=== PATIENT | female | born 1955 | race Caucasian/White ===

== ENCOUNTER 2017-03-01 17:15 | Emergency (ER) | payer BC ==
[2017-03-01 17:34] VITALS: TEMP 98.7; BMI 37.8
[2017-03-01] MEDS ORDERED: ASPIRIN 81 MG CHEWABLE TABLETS PO ONE (17:38)
[2017-03-01] MEDS ORDERED: ASPIRIN 81 MG CHEWABLE TABLETS ONE (17:51)
--- NOTE | 2017-03-01 18:08 | PDOC ---
History of Present Illness - General Chief Complaint: Chest Pain Stated Complaint: CHEST PAIN WITH ARM MOVEMENT, DIZZY SPELL 4 TUESDA Time Seen by Provider: 03/01/17 17:26 History Source: Patient Exam Limitations: No Limitations - History of Present Illness Initial Comments: The patient is a 61 year old female with past medical history of hyperlipidemia , uterine CA, s/p hysterectomy, cholecystectomy, gastric banding who presents to the ED with complaints of left sided chest pain since yesterday. She reports the pain is intermittent, lasting only a few seconds each episode. The pain is also felt when moving her left arm and is aching in nature. It is not associated with SOB, palpitations, diaphoresis, n/v, worsening of sypmtoms on exertion, visual changes, dysarthria, or numbness/weakness/tingling. She also reports an episode of lightheadedness three days ago while at work. She states the episode lasted for three minutes and was not associated with any symptoms including headache, neck pain, back pain, cp, palpitations, sob, n/v, diahoresis , vision changes, diarrhea/dysuria./melena/bpr. Since then, she did not experience any similar episodes. The patient denies any recent illness, fever, chills, nausea, vomiting, diarrhea, or urinary symptoms. No recent exertional sypmtoms. Pt notes that prior to her onset of chets pain she was using a weed eunice in her yard for the time. The patient is a former smoker and reports hx of heart disease on dads side in the 70s. Past History - Past Medical History Allergies/Adverse Reactions: Allergies Allergy/AdvReac Type Severity Reaction Status Date / Time No Known Allergies Allergy Verified 03/01/17 17:24 Home Medications: Ambulatory Orders Dorzolamide HCl/Timolol Maleat [Cosopt Eye Drops] 10 ml OP BID 11/30/13 Pitavastatin Calcium [Livalo] 4 mg PO HS 03/01/17 Ranitidine [Zantac -] 150 mg PO BID 03/01/17 Anemia: No Asthma: No Cancer: Yes (H/O UTERINE) Cardiac Disorders: No CVA: No COPD: (SLEEP APNEA) CHF: No Dementia: No Diabetes: No GI Disorders: Yes (HIATAL HERNIA) Disorders: No HTN: No Hypercholesterolemia: Yes Liver Disease: No Seizures: No Thyroid Disease: No - Surgical History Abdominal Surgery: Yes (GASTRIC BAND) Appendectomy: No Cardiac Surgery: No Cholecystectomy: Yes Lung Surgery: No Neurologic Surgery: No Orthopedic Surgery: No - Psycho/Social/Smoking Cessation Hx Anxiety: No Suicidal Ideation: No Smoking History: Never smoked Have you smoked in the past 12 months: No If you are a former smoker, when did you quit?: 2003 Information on smoking cessation initiated: No Hx Alcohol Use: No Drug/Substance Use Hx: No Substance Use Type: None Hx Substance Use Treatment: No Cardiac Specific PMH - Complaint Specific PMHX Pacemaker: No Review of Systems - Review of Systems Able to Perform ROS?: Yes Comments:: CONSTITUTIONAL: No reported: Fever, Chills, Diaphoresis, Generalized Weakness, Malaise, Loss of Appetite HEENT: No reported: Rhinorrhea, Nasal Congestion, Throat Pain, Throat Swelling, Difficulty Swallowing, Mouth Swelling, Ear Pain, Eye Pain, Visual Changes CARDIOVASCULAR: Present: left sided chest pain, lightheaded episode No reported: Syncope, Palpitations, Irregular Heart Rate, Lightheadedness, Peripheral Edema RESPIRATORY: No reported: Cough, Shortness of Breath, SOB with Exertion, Orthopnea, Wheezing , Stridor, Hemoptysis GASTROINTESTINAL: No reported: Abdominal pain, Abdominal Distension, Nausea, Vomiting, Diarrhea, Constipation, Melena, Hematochezia GENITOURINARY: No reported: Dysuria, Frequency, Urgency, Hesitancy, Flank Pain, Genital Pain MUSCULOSKELETAL: No reported: Myalgia, Arthralgia, Joint Swelling, Back pain, Neck Pain SKIN: No reported: Rash, Itching, Pallor HEMEATOLOGIC/IMMUNOLOGIC: No reported: Easy Bleeding, Easy Bruising, Lymphadenopathy, Frequent infections ENDOCRINE: No reported: Unexplained Weight Gain, Unexplained Weight Loss, Heat Intolerance , Cold Intolerance NEUROLOGIC: No reported: Headache, Focal Weakness, Paresthesias, Vertigo, Unsteady Gait, Seizure, Mental Status Changes, Incontinence PSYCHIATRIC: No reported: Anxiety, Depression *Physical Exam - Vital Signs Last Vital Signs Temp Pulse Resp BP Pulse Ox 98.7 F 66 16 152/80 97 03/01/17 17:22 03/01/17 20:35 03/01/17 20:35 03/01/17 18:55 03/01/17 20:35 - Physical Exam Comments: GENERAL: The patient is awake, alert, and fully oriented, Nontoxic - in no acute distress. HEAD: Normocephalic, atraumatic. EYES: extraocular movements intact, sclera anicteric, conjunctiva clear. ENT: Normal voice, Moist mucous membranes. NECK: Normal range of motion, supple LUNGS: Breath sounds equal, clear to auscultation bilaterally. No wheezes, no rhonchi, no rales. HEART: Reproducible chest pain to left anterior chest. Regular rate and rhythm, without murmur, rub or gallop. ABDOMEN: Soft, nontender, normoactive bowel sounds. No guarding, no rebound.No CVA tenderness EXTREMITIES: Normal range of motion, no edema. No clubbing or cyanosis. No cords , erythema, or tenderness. NEUROLOGICAL: No facial assymetry, Normal speech, moving all 4 extremities spontaneously and symmetrically PSYCH: Normal mood, normal affect. SKIN: Warm, Dry, normal turgor, Heart Score/ECG Review - History History: Slightly suspicious - Electrocardiogram EKG: Non specific repolarization disturbance - Age Age: 45-65 - Risk Factors Risk Factors Heart Score: Yes Hx Hypercholesterolemia Based on the list above the patient has:: 1-2 risk factors - Troponin Troponin: </= normal limit - Score Heart Score - Total: 3 - ECG Impressions Comment:: 03/01/17 18:51 Twelve-lead EKG was performed and reviewed by me. There is normal sinus rhythm with a normal rate. Rate of 70 The axis is normal. The intervals are normal. There is normal R wave progression T wave flattening in aVL ED Treatment Course - LABORATORY CBC & Chemistry Diagram: 03/01/17 18:00 03/01/17 18:00 - ADDITIONAL ORDERS Additional order review: 03/01/17 18:00 RBC 5.24 H MCV 78.9 L MCHC 33.0 RDW 13.7 MPV 9.0 Neutrophils % 53.8 Lymphocytes % 33.0 Monocytes % 9.6 Eosinophils % 3.0 Basophils % 0.6 - RADIOLOGY Radiology Studies Ordered: Category Date Time Status CHEST PA & LAT [RAD] Stat Radiology 03/01/17 17:38 Completed - Medications Given in the ED: ED Medications Discontinued Medications Generic Name Dose Route Start Last Admin Trade Name Freq PRN Reason Stop Dose Admin Acetaminophen 650 mg 03/01/17 18:50 03/01/17 19:06 Tylenol - PO 03/01/17 18:51 650 mg ONCE ONE Administration Aspirin 162 mg 03/01/17 17:38 03/01/17 17:53 Asa - PO 03/01/17 17:39 162 mg ONCE ONE Administration Medical Decision Making - Medical Decision Making 03/01/17 18:49 61y F hx of hl, borderline dm, presents with intermittent episodic L sided chest pain that is worse with movements of her L arm w/o associated exertioanl sypmtoms, it is also reproducible in nature. suspect muscular pain, but also consider acs will obtain trop x2 , cxr, ekg pt given asa case dw dr. Tineo agree with management and trops x2, if feeling well asymptomatic will dc with supportive mangaement and will have dr. Tineo refer for outpatient risk strateification. will sign pt out to dr. Alcantar to fu with 2nd troponin and disposition the patient *DC/Admit/Observation/Transfer Diagnosis at time of Disposition: Chest wall muscle strain Qualifiers: Encounter type: initial encounter Qualified Code(s): S29.011A - Strain of muscle and tendon of front wall of thorax, initial encounter - Discharge Dispostion Disposition: HOME Condition at time of disposition: Stable - Referrals Referrals: Jules Bennett MD [Staff Physician] - 3 days - Patient Instructions Printed Discharge Instructions: DI for Atypical Chest Pain Additional Instructions: avoid strenuous upper body activity tylenol as needed 3 times a day can use topical patch(such as "Mitchell-german") to area daily followup with Dr Tineo in office Sunday 03/04, afternoon return to ER if you have worsening pain
[2017-03-01 18:23] LABS: BASOPHIL 0.6 % (0-2.0)
[2017-03-01 18:29] LABS: INR 1.1 (0.82-1.09); MEAN CELL VOLUME 78.9 fl (80-96); NEUTROPHILS 53.8 % (42.8-82.8); PLATELET COUNT 254 K/MM3 (134-434); PROTHROMBIN TIME (PATIENT) 12.3 SEC (10.2-13.0); RDW 13.7 % (11.6-15.6); WHITE BLOOD COUNT 8.3 K/mm3 (4.0-10.8)
[2017-03-01 18:34] LABS: ALBUMIN 4.4 g/dl (3.5-5.0); ALK PHOS 75 U/L (32-92); ANION GAP 10 (8-16); CALCIUM 9.4 mg/dl (8.4-10.2); CO2 28 mmol/L (22-28); CPK(DFH) 264 IU/L (26-140); CREATININE 0.8 mg/dl (0.6-1.3); GLUCOSE,RANDOM 91 mg/dl (74-106); SGOT/AST 25 U/L (10-42); SGPT/ALT 25 U/L (10-40); TOT PROT 7.8 g/dl (6.4-8.3)
[2017-03-01] MEDS ORDERED: ACETAMINOPHEN 325 MG TABLET (FP) PO ONE (18:50)
[2017-03-01 18:54] LABS: BILIRUBIN,TOTAL < 0.3 mg/dl (0.2-1.0); TROPONIN I (DFP) < 0.03 ng/ml (0.03-0.50)
[2017-03-01 18:55] LABS: CK MB 6.5 ng/ml (0.3-4.0)
[2017-03-01 18:56] VITALS: BP 152/80
[2017-03-01] MEDS ORDERED: ACETAMINOPHEN 325 MG TABLET (FP) ONE (19:04)
--- NOTE | 2017-03-01 19:24 | PDOC ---
*Physical Exam - Vital Signs Last Vital Signs Temp Pulse Resp BP Pulse Ox 98.7 F 64 17 152/80 98 03/01/17 17:22 03/01/17 18:55 03/01/17 18:55 03/01/17 18:55 03/01/17 18:55 ED Treatment Course - LABORATORY CBC & Chemistry Diagram: 03/01/17 18:00 03/01/17 18:00 - ADDITIONAL ORDERS Additional order review: Laboratory Results 03/01/17 03/01/17 03/01/17 18:00 18:00 18:00 INR 1.10 Sodium 143 Potassium 3.7 Chloride 105 Carbon Dioxide 28 D Anion Gap 10 BUN 13 Creatinine 0.8 Creat Clearance w eGFR > 60 Random Glucose 91 Calcium 9.4 Total Bilirubin < 0.3 D AST 25 ALT 25 Alkaline Phosphatase 75 Creatine Kinase 264 H CK-MB (CK-2) 6.5 H Troponin I < 0.03 L Total Protein 7.8 Albumin 4.4 03/01/17 18:00 RBC 5.24 H MCV 78.9 L MCHC 33.0 RDW 13.7 MPV 9.0 Neutrophils % 53.8 Lymphocytes % 33.0 Monocytes % 9.6 Eosinophils % 3.0 Basophils % 0.6 - Medications Given in the ED: ED Medications Discontinued Medications Generic Name Dose Route Start Last Admin Trade Name Sudeepq PRN Reason Stop Dose Admin Acetaminophen 650 mg 03/01/17 18:50 03/01/17 19:06 Tylenol - PO 03/01/17 18:51 650 mg ONCE ONE Administration Aspirin 162 mg 03/01/17 17:38 03/01/17 17:53 Asa - PO 03/01/17 17:39 162 mg ONCE ONE Administration Progress Note - Progress Note Progress Note: Care of this patient received from Dr. Morton. Second set of cardiac enzymes are not elevated. Dr. Tineo contacted and results discussed with him. The patient will follow-up with him on March 04 as scheduled. Meanwhile, the patient should continue Tylenol 3 times a day as needed for her pain and use topical analgesic patch such as BenGay. She should return to the emergency room if pain worsens or she experiences shortness of breath/nausea. *DC/Admit/Observation/Transfer Diagnosis at time of Disposition: Chest wall muscle strain Qualifiers: Encounter type: initial encounter Qualified Code(s): S29.011A - Strain of muscle and tendon of front wall of thorax, initial encounter - Discharge Dispostion Disposition: HOME Condition at time of disposition: Stable - Referrals Referrals: Jules Bennett MD [Staff Physician] - 3 days - Patient Instructions Printed Discharge Instructions: DI for Atypical Chest Pain Additional Instructions: avoid strenuous upper body activity tylenol as needed 3 times a day can use topical patch(such as "Mitchell-german") to area daily followup with Dr Tineo in office Sunday 03/04, afternoon return to ER if you have worsening pain
[2017-03-01 20:36] VITALS: PULSE 66
[2017-03-01 22:19] LABS: CPK(DFH) 224 IU/L (26-140)
[2017-03-01 22:42] LABS: CK MB 5.6 ng/ml (0.3-4.0); TROPONIN I (DFP) < 0.03 ng/ml (0.03-0.50)
--- NOTE | 2017-03-05 09:05 | EKG ---
Test Reason : Blood Pressure : / mmHG Vent. Rate : 070 BPM Atrial Rate : 070 BPM P-R Int : 196 ms QRS Dur : 088 ms QT Int : 390 ms P-R-T Axes : 050 006 057 degrees QTc Int : 421 ms NORMAL SINUS RHYTHM NONSPECIFIC ST ABNORMALITY WHEN COMPARED WITH ECG OF 08-OCT-2014 14:23, NO SIGNIFICANT CHANGE WAS FOUND Confirmed by MD PARHAM MARJORY ([id number]) on 03/05/2017 9:05:30 AM Referred By: MD MEADE Confirmed By:ROYAL PARHAM MD
== END 2017-03-01 22:54 | disposition home or self-care (01) ==
LOC: FER 17:15
DX: S29.011A Strain of muscle and tendon of front wall of thorax, initial encounter (principal); X58.XXXA Exposure to other specified factors, initial encounter; Y93.9 Activity, unspecified; Y92.9 Unspecified place or not applicable; Z85.42 Personal history of malignant neoplasm of other parts of uterus; Z98.84 Bariatric surgery status; E78.5 Hyperlipidemia, unspecified; G47.30 Sleep apnea, unspecified
CPT/HCPCS: 36415; 71020-TC; 80053; 82550; 82553; 84484; 85025; 85610; 93005; 99284-25

== ENCOUNTER 2018-05-16 10:12 | Day surgery (SDC) | payer BC ==
[2018-05-16] MEDS ORDERED: LIDOCAINE HCL/PF 2% SDV 5ML VIAL ONE (10:41)
[2018-05-16] MEDS ORDERED: PROPOFOL 20 ML ONE ×2 (10:41)
[2018-05-16 10:54] VITALS: BMI 39.9
[2018-05-16 12:00] VITALS: TEMP 98.1
[2018-05-16 13:53] VITALS: BP 161/75; PULSE 57
== END 2018-05-16 13:30 | disposition home or self-care (01) ==
LOC: JASU-ENDO 10:12
PROVIDERS: ATTEND Internal Medicine Gastroenterology
PROC: 0DBM8ZX Excision of Descending Colon, Via Natural or Artificial Opening Endoscopic, Diagnostic (ICD-10-PCS; 2018-05-16)
PROC: 0DBN8ZX Excision of Sigmoid Colon, Via Natural or Artificial Opening Endoscopic, Diagnostic (ICD-10-PCS; 2018-05-16)
PROC: 0DBP8ZX Excision of Rectum, Via Natural or Artificial Opening Endoscopic, Diagnostic (ICD-10-PCS; 2018-05-16)
PROC: 0DB98ZX Excision of Duodenum, Via Natural or Artificial Opening Endoscopic, Diagnostic (ICD-10-PCS; 2018-05-16)
PROC: 0DB68ZX Excision of Stomach, Via Natural or Artificial Opening Endoscopic, Diagnostic (ICD-10-PCS; 2018-05-16)
PROC: 0DB38ZX Excision of Lower Esophagus, Via Natural or Artificial Opening Endoscopic, Diagnostic (ICD-10-PCS; 2018-05-16)
PROC: 0DBL8ZX Excision of Transverse Colon, Via Natural or Artificial Opening Endoscopic, Diagnostic (ICD-10-PCS; principal; 2018-05-16 11:00)
DX: Z12.11 Encounter for screening for malignant neoplasm of colon (principal); Z86.010 Personal history of colon polyps; D12.4 Benign neoplasm of descending colon; D12.5 Benign neoplasm of sigmoid colon; D12.3 Benign neoplasm of transverse colon; K62.1 Rectal polyp; K64.8 Other hemorrhoids; K57.30 Diverticulosis of large intestine without perforation or abscess without bleeding; K21.9 Gastro-esophageal reflux disease without esophagitis; K29.80 Duodenitis without bleeding
CPT/HCPCS: 88305-TC; 88342-TC

== ENCOUNTER 2018-09-12 08:12 | Day surgery (SDC) | payer BC ==
[2018-09-11 16:04] VITALS: BMI 42.0
[2018-09-12] MEDS ORDERED: PROMETHAZINE HCL 25 MG/1 ML VIAL IVPB PRN (10:12)
[2018-09-12] MEDS ORDERED: IBUPROFEN 800 MG/8 ML IJ IVPB PRN (10:12)
[2018-09-12] MEDS ORDERED: oxyCODONE HCL 5 MG TABLET PO PRN ×2 (10:12→12:02)
[2018-09-12] MEDS ORDERED: ONDANSETRON 4 MG/2 ML VIAL IVPUSH PRN ×2 (10:12→12:02)
[2018-09-12] MEDS ORDERED: ACETAMINOPHEN 1000 MG/100 ML VIAL (NON FORMULARY) IVPB PRN (10:13)
[2018-09-12] MEDS ORDERED: LACTATED RINGERS SOLUTION 1,000 ML IV SCH (10:15)
[2018-09-12] MEDS ORDERED: ceFAZolin SODIUM 1 GM VIAL ONE (10:18)
[2018-09-12] MEDS ORDERED: LIDOCAINE HCL/PF 2% SDV 5ML VIAL ONE (10:18)
[2018-09-12] MEDS ORDERED: ROCURONIUM BROMIDE 50 MG/5 ML VIAL ONE (10:19)
[2018-09-12] MEDS ORDERED: fentaNYL CITRATE 250 MCG/5 ML VIAL ONE (10:19)
[2018-09-12] MEDS ORDERED: MIDAZOLAM HCL 2 MG/2 ML SINGLE DOSE VIAL ONE (10:19)
[2018-09-12] MEDS ORDERED: PROPOFOL 20 ML ONE ×2 (10:19)
[2018-09-12] MEDS ORDERED: ceFAZolin SODIUM 1 GM VIAL IVPB ONE (10:45)
[2018-09-12] MEDS ORDERED: DEXAMETHASONE SOD PHOSPHATE 4 MG/1 ML VIAL ONE (10:55)
[2018-09-12] MEDS ORDERED: GLYCOPYRROLATE 0.2 MG/1 ML VIAL ONE (11:13)
[2018-09-12] MEDS ORDERED: NEOSTIGMINE METHYLSULFATE 0.5 MG/ML - 10 ML MDV ONE (11:13)
[2018-09-12] MEDS ORDERED: BUPIVACAINE HCL/PF 0.5% (5MG/ML) 10 ML VIAL ONE (11:47)
[2018-09-12] MEDS ORDERED: BUPIVACAINE HCL/PF (5 MG/ML) 30 ML VIAL IJ ONE (11:48)
[2018-09-12] MEDS ORDERED: PROMETHAZINE HCL 50 MG/1 ML AMP IM PRN (12:02)
[2018-09-12] MEDS ORDERED: ENOXAPARIN NA (PORCINE) 40 MG/0.4 ML DISP.SYRIN SQ ONE (12:02)
--- NOTE | 2018-09-12 12:13 | OP ---
Operative Note - Note: Operative Date: 09/12/18 Pre-Operative Diagnosis: Epigastric Pain. Vomiting. GE Reflux Disease. Mechanical Complication of Implantable Device secondary to Gastric Band Operation: Removal of Gastric Band plus subcutaneous Port. Laparoscopic Lysis of Adhesions. Excision of Fibrous Capsule around Stomach. Diagnostic Laparoscopy Findings: Band removed from around stomach Fibrous capsule around stomach carefully dissected free Post-Operative Diagnosis: Same as Pre-op (Abdominal Adhesions; Fibrous capsule around stomach) Surgeon: Kevin Pretty Assistant To The Ceo: Rich Chowdary Anesthesia: General Specimens Removed: Gastric Band plus sub-Q Port compnent. Fibrous Capsule around Stomach Estimated Blood Loss (mls): 20 Operative Report Dictated: Yes
[2018-09-12] MEDS ORDERED: SODIUM CHLORIDE 1,000 ML IV SCH (12:15)
--- NOTE | 2018-09-12 12:18 | SURG ---
Surgery Coroner Forensic Technician Note Coroner Forensic Technician: Rich Chowdary PA-C Date of Service: 09/12/18 Diagnosis: Epigastric Pain. Vomiting. GE Reflux Disease. Mechanical Complication of Implantable Device secondary to Gastric Band Procedure: Removal of Gastric Band plus subcutaneous Port. Laparoscopic Lysis of Adhesions. Excision of Fibrous Capsule around Stomach. Diagnostic Laparoscopy I was present for the entirety of the operative procedure. For further detail, please refer to operative report. Visit type - Case Type Case Type: Scheduled - New patient This patient is new to me today: Yes Date on this admission: 09/12/18
--- NOTE | 2018-09-12 13:24 | OP ---
DATE OF OPERATION: 09/12/2018 PREOPERATIVE DIAGNOSES: 1. Epigastric pain. 2. Vomiting. 3. Gastroesophageal reflux disease. 4. Mechanical complication of implantable device secondary to gastric band. POSTOPERATIVE DIAGNOSES: 1. Epigastric abdominal pain. 2. Vomiting. 3. Gastroesophageal reflux disease. 4. Mechanical complication of implantable device secondary to gastric band. 5. Abdominal adhesions. 6. Fibrous capsule around the stomach. PROCEDURE PERFORMED: 1. Removal of gastric band plus subcutaneous port component. 2. Laparoscopic lysis of adhesions. 3. Excision of fibrous capsule around the stomach. 4. Diagnostic laparoscopy. SURGEON: Kevin Pretty MD MARINE STEAM FITTER: TAVO Bethea ANESTHESIA: General. OPERATIVE PROCEDURE: The patient was brought into the operating room, placed on the OR table in a supine position. All precautions were taken initially including padding for the back and the feet, and Venodyne boots were placed on both lower extremities. At that point, the abdomen was prepped and draped in usual manner. A Veress needle was placed in the left upper quadrant and pneumoperitoneum established. A number 5 bladeless trocar was placed in the left upper quadrant under direct guidance with a laparoscopic camera. Through that trocar then a laparoscopic camera was placed. Under direct vision, a number 15 bladeless trocar was placed in the right upper quadrant just beside the falciform ligament. Using that as the camera guide, a number 5 bladeless trocar was then placed below the left costal margin. The camera was then placed through that trocar, and there were adhesions to the right upper quadrant that needed to be lysed from the patient's previous surgery. These were done with a combination of sharp dissection with the scissors and also with electrocautery. Once enough adhesion between the omentum and anterior abdominal wall was cleared, a number 5 bladeless trocar was then placed more laterally in the right upper quadrant. At this point, a Solomon liver retractor was placed in the epigastrium to retract left lobe of the liver. The patient was then placed in a 20-degree reverse Trendelenburg position by Anesthesia. Attention was now directed to the band which was located around the stomach. The band tubing was seen, and that was pulled to the patient's left side by the assistant county attorney surgeon as the operating surgeon used electrocautery to dissect the fibrous capsule off of the band on the lesser curvature side. This continued laterally until the band was able to be moved on the lesser curvature side. At this juncture, the operating surgeon pulled the band tubing toward the patient's right side. The assistant county attorney surgeon retracted the stomach inferiorly on the greater curvature. The electrocautery was then used to score and dissect the fibrous capsule off the band on the greater curvature side until the entire band was fully visible on the greater curvature side of the stomach. At this point, band tubing was cut at its takeoff to the subcutaneous port, and the band was then cut and opened up. The band was then removed from around the stomach in 1 piece, and the band was then sent off the field with the band tubing and the band through the number 15 trocar site, sent off the field as specimen to Pathology. Attention was now directed to the fibrous capsule around the stomach. The fibrous capsule superiorly was noted to be thick, and this was dissected off the stomach wall, and a piece of it was cut and sent off the field as specimen to Pathology for study. The rest of the stomach on the anterior surface now was in full view and was now cleared of the fibrous capsule. At this juncture, under direct vision, all trocars were removed, and pneumoperitoneum is released. The right upper quadrant number 15 trocar site was extended laterally, and dissection continued with electrocautery down to the fibrous capsule on the port. The fibrous capsule was excised with electrocautery off the port, and the port was then removed from the right anterior rectus muscle and sent off the field as a specimen to Pathology with the rest of the band and tubing. At this point, all trocar sites received 0.25% Marcaine. The number 15 trocar site was closed with 0 Vicryl on the subcutaneous tissue then all trocar sites were closed with 4-0 Biosyn in subcuticular fashion. Dressings were applied. The patient awoke from anesthesia and transferred out of the operating room to the recovery room in stable condition. EXPECTED BLOOD LOSS: 00 mL. DISPOSITION: The patient was transferred to the recovery room in stable condition. Eleanor [id number]
[2018-09-12 15:41] VITALS: BP 132/74; PULSE 71; TEMP 98.1
[2018-09-12] MEDS ORDERED: FAMOTIDINE 20 MG/50 ML IVPB 20 MG/50 ML MG IVPB SCH (22:00)
--- NOTE | 2018-09-16 18:49 | PATH ---
Surgical Pathology Report Patient Name: [facility]. Rec. #: [id number] /Age/Gender: 1955 (Age: 62) / F Account: [id number] Location: [facility] SURGICAL Taken: 09/12/2018 Received: 09/12/2018 Reported: 09/16/2018 Physicians: Kevin Pretty M.D. Specimen(s) Received A: REMOVED GASTRIC BAND AND PORT B: FIBROUS CAPSULE AROUND STOMACH Clinical History Complications of gastric band procedure Final Diagnosis A. GASTRIC BAND AND PORT, REMOVAL: GASTRIC BAND AND PORT. MACROSCOPIC DIAGNOSIS. B. STOMACH, FIBROUS CAPSULE, EXCISION: CONSISTENT WITH FIBROUS CAPSULE. Electronically Signed Coreen Tomas M.D. Gross Description A. Received fresh labeled "removed gastric band and port," is a 4 cm in diameter white, circular device, consistent with a gastric band. The specimen displays an attached 39 cm in length portion of tubing. Also received within the same container is a 4.6 cm in greatest dimension lund device, consistent with a port. The port displays attached fibrous capsule. There are two additional portions of tubing received, measuring 2.0 and 13.0 cm in length. No sections are submitted, gross only. B. Received in formalin labeled "fibrous capsule around stomach," is a 2.0 x 0.9 x 0.1 cm lund portion of fibrous capsule. Can Labeler sections are submitted in one cassette. /09/15/2018
== END 2018-09-12 15:35 | disposition home or self-care (01) ==
LOC: JASU-SURG 08:12
PROVIDERS: ATTEND Surgery
PROC: 0DP Gastrointestinal System, Removal (ICD-10-PCS; principal; 2018-09-12 10:00)
DX: T85.598A Other mechanical complication of other gastrointestinal prosthetic devices, implants and grafts, initial encounter (principal); R10.13 Epigastric pain; R11.10 Vomiting, unspecified; K21.9 Gastro-esophageal reflux disease without esophagitis; K66.0 Peritoneal adhesions (postprocedural) (postinfection)
CPT/HCPCS: 74241-TC-FY; 86850; 86900; 86901; 88300-TC; 88304-TC; 94760; J0131

== ENCOUNTER 2019-06-08 08:21 | Inpatient (IN) | payer BC | END 2019-06-11 11:45 | disposition home or self-care (01) | LOC: FM/S 08:21 ==

== ENCOUNTER 2022-01-19 05:41 | Day surgery (SDC) | payer BC ==
[2022-01-17 09:40] VITALS: BMI 46.3
[2022-01-19 10:59] VITALS: TEMP 98.2
[2022-01-19 11:04] VITALS: BP 95/33; PULSE 60
== END 2022-01-19 11:13 | disposition home or self-care (01) ==
LOC: JASU-ENDO 05:41
PROVIDERS: ATTEND Internal Medicine Gastroenterology
PROC: 0DBP8ZX Excision of Rectum, Via Natural or Artificial Opening Endoscopic, Diagnostic (ICD-10-PCS; principal; 2022-01-19 10:00)
DX: D12.8 Benign neoplasm of rectum (principal); K57.30 Diverticulosis of large intestine without perforation or abscess without bleeding; K64.8 Other hemorrhoids; Z12.11 Encounter for screening for malignant neoplasm of colon
CPT/HCPCS: 88305-TC

== ENCOUNTER 2023-05-31 18:34 | Inpatient (IN) | payer OTHER, BC ==
[2023-05-31 19:43] LABS: BASO % 0.9 % (0-2.0); EOS % 3.4 % (0-4.5); HEMATOCRIT 39.6 % (32.4-45.2); LYMPH % 31.4 % (8-40); MCH 25.1 pg (25.7-33.7); MCHC 32.9 g/dl (32.0-36.0); MEAN CELL VOLUME 76.2 fl (80-96); MEAN PLT VOLUME 8.5 fl (7.5-11.1); MONO % 9.5 % (3.8-10.2); NEUT % 54.8 % (42.8-82.8); PLATELET COUNT 290 10^3/uL (134-434); RBC 5.19 M/mm3 (3.60-5.2); RDW 15.9 % (11.6-15.6); WHITE BLOOD COUNT 9.2 K/mm3 (4.0-10.0)
[2023-05-31] MEDS ORDERED: ACETAMINOPHEN 1000 MG/100 ML BAG IVPB ONE (20:05)
[2023-05-31 20:09] LABS: POTASSIUM 4.3 mmol/L (3.5-5.1)
[2023-05-31 20:11] LABS: CALCIUM 9.6 mg/dL (8.5-10.1)
[2023-05-31 20:12] LABS: BLOOD UREA NITROGEN 21.2 mg/dL (7-18)
[2023-05-31] MEDS ORDERED: ACETAMINOPHEN INJECTION 100 ML IVPB ONE (20:12)
[2023-05-31 20:15] LABS: CREATININE 1.2 mg/dL (0.55-1.3)
[2023-05-31 20:16] LABS: BILIRUBIN,TOTAL 0.2 mg/dL (0.2-1); TOT PROT 7.5 g/dl (6.4-8.2)
[2023-05-31] MEDS ORDERED: SODIUM CHLORIDE 1,000 ML IV STA (21:19)
[2023-06-01] MEDS ORDERED: LACTATED RINGERS SOLUTION 1,000 ML/1,000 ML INFUS.BAG IV SCH (06:00)
[2023-06-01 07:57] LABS: BASO % 0.9 % (0-2.0); EOS % 2.8 % (0-4.5); HEMOGLOBIN 12.4 GM/dL (10.7-15.3); LYMPH % 27.1 % (8-40); MCH 24.9 pg (25.7-33.7); MCHC 31.9 g/dl (32.0-36.0); MEAN CELL VOLUME 78.3 fl (80-96); MEAN PLT VOLUME 8.9 fl (7.5-11.1); MONO % 10.2 % (3.8-10.2); PLATELET COUNT 269 10^3/uL (134-434); RBC 4.98 M/mm3 (3.60-5.2); RDW 15.7 % (11.6-15.6); WHITE BLOOD COUNT 7.4 K/mm3 (4.0-10.0)
[2023-06-01 08:13] LABS: POTASSIUM 4.2 mmol/L (3.5-5.1)
[2023-06-01 08:15] LABS: CALCIUM 9.1 mg/dL (8.5-10.1)
[2023-06-01 08:16] LABS: ALBUMIN 3.8 g/dl (3.4-5.0); BLOOD UREA NITROGEN 18.4 mg/dL (7-18)
[2023-06-01 08:18] LABS: CREATININE 0.9 mg/dL (0.55-1.3)
[2023-06-01 08:20] LABS: BILIRUBIN,TOTAL 0.3 mg/dL (0.2-1); TOT PROT 7.2 g/dl (6.4-8.2)
[2023-06-01] MEDS ORDERED: ASPIRIN 81 MG CHEWABLE TABLETS ONE ×2 (10:52→11:00)
[2023-06-01] MEDS ORDERED: ENOXAPARIN NA (PORCINE) 40 MG/0.4 ML DISP.SYRIN SQ ONE (10:52)
[2023-06-01] MEDS: ENOXAPARIN NA (PORCINE) 40 MG/0.4 ML DISP.SYRIN SQ SCH ×2 (11:01→22:24)
[2023-06-01] MEDS: ASPIRIN 81 MG CHEWABLE TABLETS PO SCH (11:01)
[2023-06-01 17:05] VITALS: BMI 45.6
[2023-06-01] MEDS: FENOFIBRIC ACID 135 MG CAP PO SCH (22:25)
[2023-06-01] MEDS: LATANOPROST 0.005% OPHTH SOLN 2.5ML BOTTLE OU SCH (22:26)
[2023-06-02 09:21] LABS: POTASSIUM 4.2 mmol/L (3.5-5.1)
[2023-06-02 09:30] LABS: CREATININE 1.1 mg/dL (0.55-1.3); TOT PROT 7.1 g/dl (6.4-8.2)
[2023-06-02 09:32] LABS: BLOOD UREA NITROGEN 19.4 mg/dL (7-18); CALCIUM 9.5 mg/dL (8.5-10.1)
[2023-06-02 09:34] LABS: ALBUMIN 3.7 g/dl (3.4-5.0); MAGNESIUM 2.1 mg/dL (1.8-2.4)
[2023-06-02 09:35] LABS: PHOSPHOROUS 3.9 mg/dL (2.5-4.9)
[2023-06-02 09:36] LABS: BILIRUBIN,TOTAL 0.3 mg/dL (0.2-1)
[2023-06-02] MEDS: ENOXAPARIN NA (PORCINE) 40 MG/0.4 ML DISP.SYRIN SQ SCH ×2 (09:38→21:30)
[2023-06-02] MEDS: ASPIRIN 81 MG CHEWABLE TABLETS PO SCH (09:38)
[2023-06-02 09:43] LABS: HEMATOCRIT 43.2 % (32.4-45.2); HEMOGLOBIN 13.9 GM/dL (10.7-15.3); MCH 24.7 pg (25.7-33.7); MCHC 32.3 g/dl (32.0-36.0); MEAN CELL VOLUME 76.6 fl (80-96); MEAN PLT VOLUME 9.1 fl (7.5-11.1); PLATELET COUNT 232 10^3/uL (134-434); RBC 5.64 M/mm3 (3.60-5.2); WHITE BLOOD COUNT 7.2 K/mm3 (4.0-10.0)
[2023-06-02] MEDS: FAMOTIDINE 20 MG TABLET PO SCH ×2 (13:15→21:30)
[2023-06-02] MEDS: FENOFIBRIC ACID 135 MG CAP PO SCH (21:30)
[2023-06-02] MEDS: LATANOPROST 0.005% OPHTH SOLN 2.5ML BOTTLE OU SCH (21:48)
[2023-06-02] MEDS ORDERED: ACETAMINOPHEN 1000 MG/100 ML BAG IVPB ONE (22:01)
[2023-06-02] MEDS: hydrALAZINE HCL 20 MG/ML VIAL IVPUSH ONE ×2 (22:52→22:55)
[2023-06-03] MEDS ORDERED: amLODIPine BESYLATE 5 MG TABLET (FP) PO SCH (08:00)
[2023-06-03] MEDS ORDERED: REGADENOSON 0.4 MG/5 ML PRE-FILLED SYRINGE IVPUSH ONE ×2 (09:54→10:15)
[2023-06-03] MEDS: FAMOTIDINE 20 MG TABLET PO SCH (12:10)
[2023-06-03] MEDS: ENOXAPARIN NA (PORCINE) 40 MG/0.4 ML DISP.SYRIN SQ SCH (12:10)
[2023-06-03] MEDS: ASPIRIN 81 MG CHEWABLE TABLETS PO SCH (12:10)
[2023-06-03] MEDS ORDERED: LOSARTAN POTASSIUM 50 MG TABLET PO SCH (15:00)
[2023-06-03 15:46] VITALS: BP 173/75; PULSE 76; RESP 19; TEMP 98.5
[2023-06-03] MEDS ORDERED: ATORVASTATIN CA 40 MG TABLET (FP) PO SCH (22:00)
== END 2023-06-03 17:57 | disposition home or self-care (01) | DRG 313 ==
LOC: JER 18:34 → JERBED 06-01 01:39 → OBSVTOIN 06-01 04:59 → J4W 06-01 15:59
PROVIDERS: ADMIT Internal Medicine; ATTEND Internal Medicine
DX: R07.89 Other chest pain (principal); Z68.42 Body mass index [BMI] 45.0-49.9, adult; K21.9 Gastro-esophageal reflux disease without esophagitis; E78.5 Hyperlipidemia, unspecified; G47.33 Obstructive sleep apnea (adult) (pediatric); E66.01 Morbid (severe) obesity due to excess calories; I25.10 Atherosclerotic heart disease of native coronary artery without angina pectoris; R73.03 Prediabetes; R11.0 Nausea; K76.0 Fatty (change of) liver, not elsewhere classified
CPT/HCPCS: 0241U-QW; 36415; 71046-TC-FY; 71275-TC; 74174-TC; 78452-TC; 80053; 80061; 83036; 83735; 84100; 84443; 84484; 85025; 85027; 93005; 93010; 93017; 93306-TC; 99285-25; A9502; G0378; J2785; Q9967

== ENCOUNTER 2025-04-08 13:10 | Observation (INO) | payer OTHER, BC ==
[2025-04-08 13:15] VITALS: BMI 43.1
[2025-04-08 14:16] LABS: ABSOLUTE IMMATURE GRANULOCYTES 0.03 x10^3/uL (0.0-0.031); BASOPHILS # 0.07 x10^3/uL (0.01-0.08); EOSINOPHIL % 1.1 % (0.7-5.8); EOSINOPHILS # 0.11 x10^3/uL (0.04-0.36); HEMATOCRIT 40.4 % (34.1-44.9); HEMOGLOBIN 12.4 g/dL (11.2-15.7); MCHC 30.7 g/dl (32.2-35.5); MEAN CELL VOLUME 79.4 fl (79.4-94.8); MEAN PLT VOLUME 10.6 fl (9.4-12.3); MONOCYTE # 0.85 x10^3/uL (0.24-0.86); MONOCYTE % 8.2 % (4.7-12.5); PLATELET COUNT 308 x10^3/uL (182-369)
[2025-04-08 14:26] LABS: INR 1.16 (0.83-1.09); PROTHROMBIN TIME (PATIENT) 12.6 SEC (9.7-13.0)
[2025-04-08 14:29] LABS: ACTIVATED PTT 36.1 SECONDS (25.2-36.5)
[2025-04-08 14:41] LABS: POTASSIUM 3.9 mmol/L (3.5-5.1)
[2025-04-08 14:44] LABS: BLOOD UREA NITROGEN 23.4 mg/dL (7-18); CALCIUM 10.3 mg/dL (8.5-10.1); MAGNESIUM 1.9 mg/dL (1.8-2.4)
[2025-04-08 14:48] LABS: CREATININE 1.2 mg/dL (0.55-1.3)
[2025-04-08 14:49] LABS: BILIRUBIN,TOTAL 0.2 mg/dL (0.2-1); TOT PROT 7.6 g/dl (6.4-8.2)
[2025-04-08 14:52] LABS: N-TERMINAL BNP 95.2 pg/ml (5-125)
[2025-04-08] MEDS ORDERED: ATORVASTATIN CA 40 MG TABLET (FP) ONE (20:19)
[2025-04-08] MEDS: ATORVASTATIN CA 40 MG TABLET (FP) PO SCH (21:17)
[2025-04-08] MEDS: FENOFIBRIC ACID 135 MG CAP PO SCH (21:18)
[2025-04-08] MEDS: LATANOPROST 0.005% OPHTH SOLN 2.5ML BOTTLE OU SCH (21:23)
[2025-04-08] MEDS: DORZOLAMIDE HCL/TIMOLOL OPHTHALMIC SOLUTION 10 ML BOTTLE OU SCH (21:24)
[2025-04-09 06:01] VITALS: BP 107/57; PULSE 72; RESP 20; TEMP 97.9
[2025-04-09 09:24] LABS: ABSOLUTE IMMATURE GRANULOCYTES 0.02 x10^3/uL (0.0-0.031); BASOPHILS # 0.06 x10^3/uL (0.01-0.08); EOSINOPHIL % 0.9 % (0.7-5.8); EOSINOPHILS # 0.09 x10^3/uL (0.04-0.36); HEMATOCRIT 39.7 % (34.1-44.9); HEMOGLOBIN 12.1 g/dL (11.2-15.7); MCHC 30.5 g/dl (32.2-35.5); MEAN CELL VOLUME 79.1 fl (79.4-94.8); MEAN PLT VOLUME 10.5 fl (9.4-12.3); MONOCYTE # 0.73 x10^3/uL (0.24-0.86); MONOCYTE % 7.4 % (4.7-12.5); PLATELET COUNT 302 x10^3/uL (182-369); RDW 15.1 % (12.4-16.4)
[2025-04-09 09:51] LABS: LDL CHOLESTEROL (ONLY SJRH) 79 mg/dL (5-100); POTASSIUM 4.1 mmol/L (3.5-5.1)
[2025-04-09 09:52] LABS: CALCIUM 10.2 mg/dL (8.5-10.1)
[2025-04-09 09:53] LABS: BLOOD UREA NITROGEN 21.6 mg/dL (7-18)
[2025-04-09 09:54] LABS: CHOLESTEROL 162 mg/dL (50-200); HDL CHOLESTEROL 63 mg/dL (40-60)
[2025-04-09 09:56] LABS: CREATININE 0.9 mg/dL (0.55-1.3); PHOSPHOROUS 3.8 mg/dL (2.5-4.9)
[2025-04-09 09:59] LABS: BILIRUBIN,TOTAL 0.4 mg/dL (0.2-1); TOT PROT 7.4 g/dl (6.4-8.2)
[2025-04-09] MEDS: ASPIRIN COATED 81 MG TABLET.EC PO SCH (10:37)
[2025-04-09] MEDS: amLODIPine BESYLATE 5 MG TABLET (FP) PO SCH (10:37)
[2025-04-09] MEDS: LOSARTAN POTASSIUM 50 MG TABLET PO SCH (10:37)
[2025-04-09] MEDS ORDERED: HEPARIN NA (PORCINE) 5,000 UNITS/ML 1ML VIAL SQ SCH (22:00)
== END 2025-04-09 14:44 | disposition home or self-care (01) ==
LOC: JER 13:10 → JERBED 16:17 → J4W 04-09 00:32
PROVIDERS: ADMIT Internal Medicine; ATTEND Internal Medicine
DX: R07.89 Other chest pain (principal); K21.9 Gastro-esophageal reflux disease without esophagitis; E78.5 Hyperlipidemia, unspecified; I10 Essential (primary) hypertension; G47.33 Obstructive sleep apnea (adult) (pediatric); Z87.891 Personal history of nicotine dependence; Z91.199 Patient's noncompliance with other medical treatment and regimen due to unspecified reason
CPT/HCPCS: 36415; 71045-TC-FY; 80053; 80061; 83036; 83735; 83880; 84100; 84484; 85025; 85610; 85730; 86850; 86900; 86901; 93005; 93010; 93306-TC; 99285-25; G0378